=== PATIENT | male | born 1955 ===

== ENCOUNTER 2018-07-23 13:21 | Emergency (ER) | payer OTHER ==
[2018-07-23 15:14] LABS: BASO % 0.2 % (0.0-2.0); EOS % 0.2 % (0.0-4.0); HEMOGLOBIN 10.4 g/dL (12.0-18.0); LYMPH # 1.3 K/uL (1.0-4.3); LYMPH % 11.9 % (20.0-40.0); MEAN CELL VOLUME 77.9 fl (80.0-94.0); MEAN CORPUSCULAR HEMOGLOBIN 25.6 pg (27.0-31.0); MEAN CORPUSCULAR HGB CONC 32.8 g/dL (33.0-37.0); MEAN PLATELET VOLUME 7.6 fl (7.2-11.7); MONO # 0.2 K/uL (0.0-0.8); MONO % 2.1 % (0.0-10.0); NEUT # 9.3 K/uL (1.8-7.0); NEUT % 85.6 % (50.0-75.0); RBC 4.05 Mil/uL (4.40-5.90); WHITE BLOOD COUNT 10.9 K/uL (4.8-10.8)
[2018-07-23 15:19] LABS: ALB/GLOB RATIO 0.6 (1.0-2.1); ALBUMIN 2.2 g/dL (3.5-5.0); ALT/SGPT 16 U/L (21-72); AST/SGOT 26 U/L (17-59); BLOOD UREA NITROGEN 37 mg/dl (9-20); CALCIUM 7.5 mg/dL (8.4-10.2); GFR NON-AFRICAN AMERICAN > 60; LIPASE 16 U/L (23-300)
--- NOTE | 2018-07-23 15:26 | RAD ---
Date of service: 07/23/2018 HISTORY: abd pain COMPARISON: No prior. FINDINGS: LUNGS: No active pulmonary disease. PLEURA: No significant pleural effusion identified, no pneumothorax apparent. CARDIOVASCULAR: Normal. OSSEOUS STRUCTURES: No significant abnormalities. VISUALIZED UPPER ABDOMEN: Gas-filled large-bowel loops and moderate retained fecal material the left hemicolon as imaged. OTHER FINDINGS: None. IMPRESSION: No acute cardiopulmonary disease appreciated.
--- NOTE | 2018-07-23 15:40 | RAD ---
Date of service: 07/23/2018 PROCEDURE: Radiographs of the left tibia and fibula. HISTORY: leg wound COMPARISON: None available. TECHNIQUE: Frontal and lateral views obtained. FINDINGS: BONES: There is no acute fracture or dislocation however there is diffuse osteopenia suggesting osteoporosis. Further, soft tissue loss is seen at the mid to distal leg with abnormal periosteal changes suspicious for potential osteomyelitis though posttraumatic etiology is possible. Clinically correlate further. It may be difficult to separate osteomyelitis and any other process even with nuclear or MRI imaging. JOINT SPACES: Unremarkable. OTHER FINDINGS: None. IMPRESSION: No acute fracture or dislocation however gross abnormal periosteal reaction of the distal tibia and fibula which may reflect osteomyelitis. It may be impossible to does prove osteomyelitis despite MR nuclear imaging and added can be performed for further characterization although if it nuclear imaging is requested then left leg three-phase nuclear technique is required.
[2018-07-23] MEDS ORDERED: Sodium Chloride 0.9% 1,000 ML IV STA (15:42)
[2018-07-23] MEDS ORDERED: Iohexol 240 (50 ml) PO STA (16:07)
[2018-07-23] MEDS ORDERED: Iohexol 240 (50 ml) ONE (16:08)
[2018-07-23 16:09] LABS: VENOUS BLOOD GAS BASE EXCESS 2.2 mmol/L (0.0-2.0); VENOUS BLOOD GAS PCO2 49 mmHg (40-60); VENOUS BLOOD GAS PO2 20 mm/Hg (30-55); VENOUS BLOOD PH 7.37 (7.32-7.43)
--- NOTE | 2018-07-23 16:13 | ED PDOC ---
Addendum entered and electronically signed by Estella Collazo PA 07/26/18 10:24: Addendum Addendum: 07/26/18 10:23 wound cx noted with group G Strep sensitive to cipro and milldy sensitive to bactrim. patient is not on any antibiotics. Patient is homeless and no address or phone number listed. Was seen by podiatry in ED at time of visit. Original Note: HPI: Abdomen Time Seen by Provider: 07/23/18 13:36 Chief Complaint (Nursing): Abdominal Pain Chief Complaint (Provider): Abdominal Pain History Per: Patient, House [employer] ([id number]) History/Exam Limitations: no limitations Onset/Duration Of Symptoms: Days (x2) Current Symptoms Are (Timing): Still Present Additional Complaint(s): 62 year old male presents to ED with a complaint of upper and left-sided abdominal pain since yesterday. Patient denies any nausea, vomiting, diarrhea, constipation, fever, chills, chest pain, or shortness of breath. Of note, patient admits to Hx of heroin abuse with last use over a year ago. PMD: none provided Past Medical History Reviewed: Historical Data, Nursing Documentation, Vital Signs Vital Signs: Last Vital Signs Temp 97.8 F 07/23/18 13:26 Pulse 98 H 07/24/18 11:07 Resp 20 07/23/18 13:26 BP 144/84 07/23/18 13:26 Pulse Ox 100 07/24/18 11:07 - Medical History PMH: Denies: CAD, CVA, Diabetes, HIV - Surgical History Surgical History: Cholecystectomy - Family History Family History: States: Unknown Family Hx - Social History Drugs: Denies, Other (hx of heroin abuse - last use was 1 year ago) - Home Medications Home Medications: Ambulatory Orders Medication Instructions Recorded Dicyclomine [Dicyclomine HCl] 10 mg PO Q8 #10 cap 07/24/18 - Allergies Allergies/Adverse Reactions: Allergies Allergy/AdvReac Type Severity Reaction Status Date / Time No Known Allergies Allergy Verified 07/23/18 13:26 Review of Systems ROS Statement: Except As Marked, All Systems Reviewed And Found Negative Constitutional: Negative for: Fever, Chills Cardiovascular: Negative for: Chest Pain Respiratory: Negative for: Shortness of Breath Gastrointestinal: Positive for: Abdominal Pain (upper left). Negative for: Nausea, Vomiting, Diarrhea, Constipation Physical Exam - Reviewed Nursing Documentation Reviewed: Yes Vital Signs Reviewed: Yes - Physical Exam Appears: Positive for: Well, Non-toxic, No Acute Distress (cachectic ) Head Exam: Positive for: ATRAUMATIC, NORMAL INSPECTION, NORMOCEPHALIC Skin: Positive for: Normal Color Eye Exam: Positive for: Normal appearance ENT: Positive for: Normal ENT Inspection Neck: Positive for: Normal Cardiovascular/Chest: Positive for: Regular Rate, Rhythm Respiratory: Positive for: Normal Breath Sounds. Negative for: Respiratory Distress Gastrointestinal/Abdominal: Positive for: Soft, Tenderness (epigastric minimally), Other (large vertical old scar noted) Back: Positive for: Normal Inspection. Negative for: L CVA Tenderness, R CVA Tenderness Extremity: Positive for: Normal ROM (upper/lower), Other (large circumferential open wound with minimal drainage to left distal leg - patient reports he's had it for "several year" with FUP at [facility]) Neurologic/Psych: Positive for: Alert (x3), Oriented. Negative for: Motor/Sensory Deficits - Laboratory Results Result Diagrams: 07/23/18 15:00 07/23/18 15:00 - ECG ECG: Positive for: Interpreted By Me ECG Rhythm: Positive for: Sinus Rhythm. Negative for: ST/T Changes Rate: 98 O2 Sat by Pulse Oximetry: 100 (RA) Pulse Ox Interpretation: Normal - Progress ED Course And Treament: Pt. evaluated by [facility] pod[facility]ry resident, who spoke with Dr. Hanks and states pt. does not require any acute treatment as wound seems to be cared for routinely and has granulation tissue. Dressing was changed in ED by podiatry. No Abx needed at this time. IV line infiltrated. Calcium PO ordered. IV contrast cancelled and pt. will receive only PO contrast. Medical Decision Making Medical Decision Making: Time: 1415 Initial Plan: * Labs * CT ABD/pelvis with PO and IV contrast * EKG * NPO diet * CXR * IV fluids * Omnipaque 240 50ml PO * XR tibia/fibula (left) Time: 1523 --CXR FINDINGS: LUNGS: No active pulmonary disease. PLEURA: No significant pleural effusion identified, no pneumothorax apparent. CARDIOVASCULAR: Normal. OSSEOUS STRUCTURES: No significant abnormalities. VISUALIZED UPPER ABDOMEN: Gas-filled large-bowel loops and moderate retained fecal material the left hemicolon as imaged. OTHER FINDINGS: None. IMPRESSION: No acute cardiopulmonary disease appreciated. Time: 1539 --XR left tibia/fibula FINDINGS: BONES: There is no acute fracture or dislocation however there is diffuse osteopenia suggesting osteoporosis. Further, soft tissue loss is seen at the mid to distal leg with abnormal periosteal changes suspicious for potential osteomyelitis t ember posttraumatic etiology is possible. Clinically correlate further. It may be difficult to separate osteomyelitis and any other process even with nuclear or MRI imaging. JOINT SPACES: Unremarkable. OTHER FINDINGS: None. IMPRESSION: No acute fracture or dislocation however gross abnormal periosteal reaction of the distal tibia and fibula which may reflect osteomyelitis. It may be impossible to does prove osteomyelitis despite MR nuclear imaging and added can be performed for further characterization although if it nuclear imaging is requested then left leg three-phase nuclear technique is required. Scribe Attestation: Documented by Valery Johnston, acting as a scribe for BRIELLE Martines. Provider Scribe Attestation: All medical record entries made by the Scribe were at my direction and personally dictated by me. I have reviewed the chart and agree that the record accurately reflects my personal performance of the history, physical exam, medical decision making, and the department course for this patient. I have also personally directed, reviewed, and agree with the discharge instructions and disposition. Disposition - Clinical Impression Clinical Impression: Abdominal pain, Hypocalcemia, Ileus - Patient ED Disposition Is Patient to be Admitted: Transfer of Care (Signed out to Tesha MONK pending CT report) - Disposition Referrals: [facility] [Outside] Jordy Ferrari MD [Staff Provider] - Disposition: Routine/Home Disposition Time: 20:00 Condition: FAIR Prescriptions: Dicyclomine [Dicyclomine HCl] 10 mg PO Q8 #10 cap Instructions: Colic Forms: [facility] (Marshallese) Print Language: TURKMEN
[2018-07-23 16:28] LABS: URINE BILIRUBIN NEGATIVE (NEGATIVE); URINE BLOOD NEGATIVE (NEGATIVE); URINE CLARITY SLIGHTY-CLOUDY (Clear); URINE COLOR YELLOW (YELLOW); URINE GLUCOSE (UA) NEG (Normal); URINE LEUKOCYTE ESTERASE NEG Leu/uL (Negative); URINE PROTEIN 30 mg/dL (NEGATIVE); URINE UROBILINOGEN 0.2-1.0 mg/dL (0.2-1.0)
[2018-07-23] MEDS ORDERED: Hydrogen Peroxide 3% Soln (480ml) TP ONE (17:02)
[2018-07-23] MEDS ORDERED: Povidone Iodine Topical 10% Sol ONE (17:09)
--- NOTE | 2018-07-23 17:21 | CP.PCM.CON ---
History of Present Illness - History of Present Illness History of Present Illness: 62 yo homeless male patient seen and evaluated in the ED for bilateral lower extremity wounds. Patient is a poor historian. States he has had the wounds for a long time and that he gets them treated at [facility]. States that he is in pain with his wounds. Dressings look clean and dry indicating he has had them changed recently. Denies F/C and presents today for main complaint of abdominal pain. Maggots were present in all interdigital spaces on his left foot. PMHx Denies PSHx Denies All NKDA Past Patient History - Past Social History Drugs: Denies, Other (hx of heroin abuse - last use was 1 year ago) - HEMATOLOGICAL/ONCOLOGICAL Hx Human Immunodeficiency Virus (HIV): No - PSYCHIATRIC Hx Substance Use: Yes - SURGICAL HISTORY Hx Cholecystectomy: Yes - ANESTHESIA Hx Anesthesia: Yes Meds Home Medications: Home Medication List Medication Instructions Recorded Confirmed Type Dicyclomine [Dicyclomine HCl] 10 mg PO Q8 #10 cap 07/24/18 Rx Allergies/Adverse Reactions: Allergies Allergy/AdvReac Type Severity Reaction Status Date / Time No Known Allergies Allergy Verified 07/23/18 13:26 Physical Exam - Constitutional Appears: Well, Non-toxic, No Acute Distress - Extremities Exam Additional comments: Vasc: DP and PT pulses are 1/4 b/l, temp gradient is warm to warm from proximal to distal, cap refill <3 seconds to all digits Derm: circumferential wounds present on bilateral lower legs, bases are granular with no discharge, minimal periwound erythema b/l, interdigital maceration on left foot and maggots present between toes; no clinical signs of infection, stable granular skin between digits Ortho: no gross deformities present, pain on palpation of wounds b/l Neuro: protective and gross sensation diminished - Neurological Exam Neurological exam: Alert - Psychiatric Exam Psychiatric exam: Normal Affect, Normal Mood Results - Vital Signs Recent Vital Signs: Last Vital Signs Temp 97.8 F 07/23/18 13:26 Pulse 103 H 07/23/18 13:26 Resp 20 07/23/18 13:26 BP 144/84 07/23/18 13:26 Pulse Ox 100 07/23/18 16:23 - Labs Result Diagrams: 07/23/18 15:00 07/23/18 15:00 Labs: Laboratory Results - last 24 hr 07/23/18 07/23/18 07/23/18 15:00 15:00 16:01 WBC 10.9 H RBC 4.05 L Hgb 10.4 L Hct 31.6 L MCV 77.9 L MCH 25.6 L MCHC 32.8 L RDW 25.0 H Plt Count 418 H MPV 7.6 Neut % (Auto) 85.6 H Lymph % (Auto) 11.9 L [place] % (Auto) 2.1 Eos % (Auto) 0.2 Baso % (Auto) 0.2 Neut # (Auto) 9.3 H Lymph # (Auto) 1.3 [place] # (Auto) 0.2 Eos # (Auto) 0.0 Baso # (Auto) 0.0 pO2 20 L VBG pH 7.37 VBG pCO2 49 VBG HCO3 24.8 VBG Total CO2 29.8 H VBG O2 Sat (Calc) 30.5 L VBG Base Excess 2.2 H VBG Potassium 3.9 Glucose 74 L Lactate 2.1 FiO2 21.0 Blood Gas Comments Lact=2.1 Crit Value Called To yanique Johnson Crit Value Called By 22 Crit Value Read Back Y Blood Gas Notified Time 1608 Sodium 134 133.0 Potassium 3.8 Chloride 103 103.0 Carbon Dioxide 24 Anion Gap 11 BUN 37 H Creatinine 1.1 Est GFR ( Amer) > 60 Est GFR (Non-Af Amer) > 60 Random Glucose 81 Calcium 7.5 L Total Bilirubin 0.1 L AST 26 ALT 16 L Alkaline Phosphatase 210 H Troponin I < 0.0120 Total Protein 5.7 L Albumin 2.2 L Globulin 3.5 Albumin/Globulin Ratio 0.6 L Lipase 16 L Venous Blood Potassium 3.9 Urine Color Urine Clarity Urine pH Ur Specific [place] Urine Protein Urine Glucose (UA) Urine Ketones Urine Blood Urine Nitrate Urine Bilirubin Urine Urobilinogen Ur Leukocyte Esterase Urine RBC (Auto) Urine Microscopic WBC Alcohol, Quantitative < 10 07/23/18 16:21 WBC RBC Hgb Hct MCV MCH MCHC RDW Plt Count MPV Neut % (Auto) Lymph % (Auto) [place] % (Auto) Eos % (Auto) Baso % (Auto) Neut # (Auto) Lymph # (Auto) [place] # (Auto) Eos # (Auto) Baso # (Auto) pO2 VBG pH VBG pCO2 VBG HCO3 VBG Total CO2 VBG O2 Sat (Calc) VBG Base Excess VBG Potassium Glucose Lactate FiO2 Blood Gas Comments Crit Value Called To Crit Value Called By Crit Value Read Back Blood Gas Notified Time Sodium Potassium Chloride Carbon Dioxide Anion Gap BUN Creatinine Est GFR ( Amer) Est GFR (Non-Af Amer) Random Glucose Calcium Total Bilirubin AST ALT Alkaline Phosphatase Troponin I Total Protein Albumin Globulin Albumin/Globulin Ratio Lipase Venous Blood Potassium Urine Color Yellow Urine Clarity Slighty-cloudy Urine pH 5.0 Ur Specific [place] 1.020 Urine Protein 30 Urine Glucose (UA) Neg Urine Ketones Negative Urine Blood Negative Urine Nitrate Negative Urine Bilirubin Negative Urine Urobilinogen 0.2-1.0 Ur Leukocyte Esterase Neg Urine RBC (Auto) 6 H Urine Microscopic WBC 7 H Alcohol, Quantitative Assessment & Plan - Assessment and Plan (Free Text) Assessment: 62 yo seen and evaluated in ED for 1) b/l circumferential leg wounds and 2) left foot interdigital maceration with maggots Plan: Patient seen and evaluated Discussed in detail with Dr. Hanks Charts and labs reviewed: afebrile with mildly elevated white count Wounds were cleaned with saline and dressed with xeroform and DSD Interdigital maceration was sanitized and disinfected with alcohol to remove maggots and dressed with betadine to all interspaces and DSD Patient instructed to continue to follow up with who is treating his wounds in [facility] Stable for discharge from podiatry standpoint - please reconsult if further problems occur Thank you for the consult - Date & Time Date: 07/23/18 Time: 17:21
[2018-07-23 17:41] LABS: BARBITURATES, UR NEGATIVE (NEGATIVE); BENZODIAZEPINES, UR NEGATIVE (NEGATIVE); OPIATES, UR POSITIVE (NEGATIVE); PHENCYCLIDINE, UR NEGATIVE (NEGATIVE)
[2018-07-23] MEDS ORDERED: Iohexol 300 100 ML IJ ONE (19:10)
[2018-07-23] MEDS ORDERED: Sodium Chloride 0.9% 50 ML IV ONE (19:10)
--- NOTE | 2018-07-23 20:30 | ED PDOC ---
- Laboratory Results Result Diagrams: 07/23/18 15:00 07/23/18 15:00 - ECG O2 Sat by Pulse Oximetry: 100 (RA) Pulse Ox Interpretation: Normal <Soumya Parkinson - Last Filed: 07/24/18 06:20> - Laboratory Results Result Diagrams: 07/23/18 15:00 07/23/18 15:00 <Javier Gonzalez - Last Filed: 07/24/18 06:41> Medical Decision Making <Soumya Parkinson - Last Filed: 07/24/18 06:20> <Javier Gonzalez - Last Filed: 07/24/18 06:41> Medical Decision Making: Case endorsed to telegraphic typewriter operator chief, Tesha MONK, at 2000 due to shift change. Pertinent details reviewed. Patent pending CT results, re-evaluation, and further disposition. Labs and XRs reviewed. Repeat HR: 98. 2145 EXAM: CT Abdomen and Pelvis Without Intravenous Contrast CLINICAL HISTORY: 62 years old, male; Pain; Abdominal pain; Epigastric; Additional info: Epigastric abd pain TECHNIQUE: Axial computed tomography images of the abdomen and pelvis without intravenous contrast. All CT scans at this facility use at least one of these dose optimization techniques: automated exposure control; mA and/or kV adjustment per patient size (includes targeted exams where dose is matched to clinical indication); or iterative reconstruction. Coronal and sagittal reformatted images were created and reviewed. COMPARISON: No relevant prior studies available. FINDINGS: Lung bases: Bilateral lung obstructing renal calculi. Largest stone right kidney in the upper pole 4 mm. Largest stone left kidney in the lower pole 0.8 cm. ABDOMEN: Liver: No mass. Gallbladder and bile ducts: Intact. No calcified stones. No ductal dilation. Pancreas: No ductal dilation. Spleen: No splenomegaly. Adrenals: No mass. Kidneys and ureters: See above. Stomach and bowel: Moderate large retained feces in the ascending and descending colon. Gaseous transverse colon measuring up to 5 cm. Gaseous small bowel loops throughout the abdomen measuring up to 2.5 cm with scattered air fluid levels. PELVIS: Appendix: No findings to suggest acute appendicitis. Bladder: No stones. Reproductive: Unremarkable as visualized. ABDOMEN and PELVIS: Intraperitoneal space: No free air. No significant fluid collection. Bones/joints: Osteopenia. Superior endplate Schmorl node depression depressions at T11 and T12. Inferior endplate Schmorl node depression at L2. Posterior vertebral line intact. No spinal canal stenosis. No acute fracture. No dislocation. Soft tissues: Cachectic patient. Vasculature: No aortic aneurysm. Lymph nodes: No enlarged lymph nodes. IMPRESSION: 1. Moderate large retained feces in the ascending and descending colon. Gaseous transverse colon measuring up to 5 cm. 2. Gaseous small bowel loops throughout the abdomen measuring up to 2.5 cm with scattered air fluid levels. Ileus versus partial bowel obstruction. Followup is needed. 3. Cachectic patient. Thank you for allowing us to participate in the care of your patient. Dictated and Authenticated by: Danny Lopez MD 07/23/2018 8:32 PM Eastern Time ( [place] & [place]) Consult placed to surgical technology instructor. [address] Low, who is agreeable to ED evaluation. Recommends 15mg IVP Toradol. 0010 Surgery at bedside. See consult note. 0040 Per surgical evaluation, patient to be held in obsevation in ED for IVF and serial evaluations. Patient to be NPO and go for KUB at 0700. 0300 Patient sleeping comfortably on re-evaluation. 0700 Case endorsed to ED MD Leigh pending KUB and further disposition per surgery. ( Soumya Parkinson) 0700 Pending KUB, will be endorsed to Dr. Leigh for final re-deanna after KUB. (Javier Gonzalez) Disposition - POA Present On Arrival: None - Disposition Disposition: Transfer of Care (Case endorsed to ED MD Leigh pending KUB and further disposition per surgery.) Disposition Time: 07:00 <Soumya Parkinson - Last Filed: 07/24/18 06:20> <Javier Gonzalez - Last Filed: 07/24/18 06:41> - Clinical Impression Clinical Impression: Abdominal pain, Hypocalcemia - Disposition Condition: FAIR - Lab Results Lab Results: 07/23/18 07/23/18 07/23/18 16:21 16:01 15:00 WBC 10.9 H RBC 4.05 L Hgb 10.4 L Hct 31.6 L MCV 77.9 L MCH 25.6 L MCHC 32.8 L RDW 25.0 H Plt Count 418 H MPV 7.6 Neut % (Auto) 85.6 H Lymph % (Auto) 11.9 L [place] % (Auto) 2.1 Eos % (Auto) 0.2 Baso % (Auto) 0.2 Neut # (Auto) 9.3 H Lymph # (Auto) 1.3 [place] # (Auto) 0.2 Eos # (Auto) 0.0 Baso # (Auto) 0.0 pO2 20 L VBG pH 7.37 VBG pCO2 49 VBG HCO3 24.8 VBG Total CO2 29.8 H VBG O2 Sat (Calc) 30.5 L VBG Base Excess 2.2 H VBG Potassium 3.9 Glucose 74 L Lactate 2.1 FiO2 21.0 Blood Gas Comments Lact=2.1 Crit Value Called To yanique Johnson Crit Value Called By 22 Crit Value Read Back Y Blood Gas Notified Time 1608 Sodium 133.0 Potassium Chloride 103.0 Carbon Dioxide Anion Gap BUN Creatinine Est GFR ( Amer) Est GFR (Non-Af Amer) Random Glucose Calcium Total Bilirubin AST ALT Alkaline Phosphatase Troponin I Total Protein Albumin Globulin Albumin/Globulin Ratio Lipase Venous Blood Potassium 3.9 Urine Color Yellow Urine Clarity Slighty-cloudy Urine pH 5.0 Ur Specific [place] 1.020 Urine Protein 30 Urine Glucose (UA) Neg Urine Ketones Negative Urine Blood Negative Urine Nitrate Negative Urine Bilirubin Negative Urine Urobilinogen 0.2-1.0 Ur Leukocyte Esterase Neg Urine RBC (Auto) 6 H Urine Microscopic WBC 7 H Urine Opiates Screen Urine Methadone Screen Ur Barbiturates Screen Ur Phencyclidine Scrn Ur Amphetamines Screen U Benzodiazepines Scrn U Oth Cocaine Metabols U Cannabinoids Screen Alcohol, Quantitative 07/23/18 07/23/18 15:00 14:30 WBC RBC Hgb Hct MCV MCH MCHC RDW Plt Count MPV Neut % (Auto) Lymph % (Auto) [place] % (Auto) Eos % (Auto) Baso % (Auto) Neut # (Auto) Lymph # (Auto) [place] # (Auto) Eos # (Auto) Baso # (Auto) pO2 VBG pH VBG pCO2 VBG HCO3 VBG Total CO2 VBG O2 Sat (Calc) VBG Base Excess VBG Potassium Glucose Lactate FiO2 Blood Gas Comments Crit Value Called To Crit Value Called By Crit Value Read Back Blood Gas Notified Time Sodium 134 Potassium 3.8 Chloride 103 Carbon Dioxide 24 Anion Gap 11 BUN 37 H Creatinine 1.1 Est GFR ( Amer) > 60 Est GFR (Non-Af Amer) > 60 Random Glucose 81 Calcium 7.5 L Total Bilirubin 0.1 L AST 26 ALT 16 L Alkaline Phosphatase 210 H Troponin I < 0.0120 Total Protein 5.7 L Albumin 2.2 L Globulin 3.5 Albumin/Globulin Ratio 0.6 L Lipase 16 L Venous Blood Potassium Urine Color Urine Clarity Urine pH Ur Specific [place] Urine Protein Urine Glucose (UA) Urine Ketones Urine Blood Urine Nitrate Urine Bilirubin Urine Urobilinogen Ur Leukocyte Esterase Urine RBC (Auto) Urine Microscopic WBC Urine Opiates Screen Positive H Urine Methadone Screen Positive H Ur Barbiturates Screen Negative Ur Phencyclidine Scrn Negative Ur Amphetamines Screen Negative U Benzodiazepines Scrn Negative U Oth Cocaine Metabols Negative U Cannabinoids Screen Negative Alcohol, Quantitative < 10
[2018-07-24] MEDS ORDERED: Lactated Ringer's 1,000 ML IV SCH (00:30)
--- NOTE | 2018-07-24 00:33 | CP.PCM.CON ---
<Rony Low - Last Filed: 07/24/18 00:29> History of Present Illness - History of Present Illness History of Present Illness: General Surgery Consult Re: Ileus vs pSBO HPI: 62M presents to ED with a complaint of epigastric and left-sided abdominal pain since yesterday. Says he has not had this before. Denies nausea, vomiting, diarrhea, constipation, fever, chills, chest pain, or shortness of breath. Last BM was yesterday and had trace blood in it which he says is normal for him. Says his last colonoscopy was the last time he was here, however, there is no record of this. He follows up for wound care at [facility]. PMH: Denies PSH: Cholecystectomy FH: noncontributory SH: Current smoker, daily EtOH, Hx of heroin use, now on methadone. All: NKDA Meds: Methadone Review of Systems - Review of Systems All systems: reviewed and no additional remarkable complaints except (as per HPI ) Past Patient History - Past Social History Drugs: Denies, Other (hx of heroin abuse - last use was 1 year ago) - HEMATOLOGICAL/ONCOLOGICAL Hx Human Immunodeficiency Virus (HIV): No - PSYCHIATRIC Hx Substance Use: Yes - SURGICAL HISTORY Hx Cholecystectomy: Yes - ANESTHESIA Hx Anesthesia: Yes Meds Allergies/Adverse Reactions: Allergies Allergy/AdvReac Type Severity Reaction Status Date / Time No Known Allergies Allergy Verified 07/23/18 13:26 Physical Exam - Constitutional Appears: Non-toxic, No Acute Distress, Cachectic - Head Exam Head Exam: ATRAUMATIC, NORMOCEPHALIC - Eye Exam Eye Exam: EOMI. absent: Scleral icterus - ENT Exam ENT Exam: Mucous Membranes Moist Additional comments: poor dentition - Neck Exam Neck exam: Positive for: Full Rom. Negative for: Tenderness - Respiratory Exam Respiratory Exam: NORMAL BREATHING PATTERN. absent: Respiratory Distress - Cardiovascular Exam Cardiovascular Exam: RRR, +S1, +S2 - GI/Abdominal Exam GI & Abdominal Exam: Soft, Tenderness (mild in epigastrum, moderate over L quadrants). absent: Distended, Firm, Guarding, Rebound, Rigid Additional comments: large well healed midline incision - Rectal Exam Rectal Exam: absent: Black Stool, Bloody Stool, Fecal Impaction - Extremities Exam Extremities exam: Negative for: calf tenderness, pedal edema Additional comments: UE b/l with discoloration and mild edema LLE with dressing in place - Back Exam Back exam: absent: CVA tenderness (L), CVA tenderness (R) - Neurological Exam Neurological exam: Alert, Oriented x3 - Skin Skin Exam: Dry, Warm Results - Vital Signs Recent Vital Signs: Last Vital Signs Temp 97.8 F 07/23/18 13:26 Pulse 98 H 07/23/18 20:40 Resp 20 07/23/18 13:26 BP 144/84 07/23/18 13:26 Pulse Ox 100 07/24/18 00:11 - Labs Result Diagrams: 07/23/18 15:00 07/23/18 15:00 Labs: Laboratory Results - last 24 hr 07/23/18 07/23/18 07/23/18 14:30 15:00 15:00 WBC 10.9 H RBC 4.05 L Hgb 10.4 L Hct 31.6 L MCV 77.9 L MCH 25.6 L MCHC 32.8 L RDW 25.0 H Plt Count 418 H MPV 7.6 Neut % (Auto) 85.6 H Lymph % (Auto) 11.9 L [place] % (Auto) 2.1 Eos % (Auto) 0.2 Baso % (Auto) 0.2 Neut # (Auto) 9.3 H Lymph # (Auto) 1.3 [place] # (Auto) 0.2 Eos # (Auto) 0.0 Baso # (Auto) 0.0 pO2 VBG pH VBG pCO2 VBG HCO3 VBG Total CO2 VBG O2 Sat (Calc) VBG Base Excess VBG Potassium Glucose Lactate FiO2 Blood Gas Comments Crit Value Called To Crit Value Called By Crit Value Read Back Blood Gas Notified Time Sodium 134 Potassium 3.8 Chloride 103 Carbon Dioxide 24 Anion Gap 11 BUN 37 H Creatinine 1.1 Est GFR ( Amer) > 60 Est GFR (Non-Af Amer) > 60 Random Glucose 81 Calcium 7.5 L Total Bilirubin 0.1 L AST 26 ALT 16 L Alkaline Phosphatase 210 H Troponin I < 0.0120 Total Protein 5.7 L Albumin 2.2 L Globulin 3.5 Albumin/Globulin Ratio 0.6 L Lipase 16 L Venous Blood Potassium Urine Color Urine Clarity Urine pH Ur Specific [place] Urine Protein Urine Glucose (UA) Urine Ketones Urine Blood Urine Nitrate Urine Bilirubin Urine Urobilinogen Ur Leukocyte Esterase Urine RBC (Auto) Urine Microscopic WBC Urine Opiates Screen Positive H Urine Methadone Screen Positive H Ur Barbiturates Screen Negative Ur Phencyclidine Scrn Negative Ur Amphetamines Screen Negative U Benzodiazepines Scrn Negative U Oth Cocaine Metabols Negative U Cannabinoids Screen Negative Alcohol, Quantitative < 10 07/23/18 07/23/18 16:01 16:21 WBC RBC Hgb Hct MCV MCH MCHC RDW Plt Count MPV Neut % (Auto) Lymph % (Auto) [place] % (Auto) Eos % (Auto) Baso % (Auto) Neut # (Auto) Lymph # (Auto) [place] # (Auto) Eos # (Auto) Baso # (Auto) pO2 20 L VBG pH 7.37 VBG pCO2 49 VBG HCO3 24.8 VBG Total CO2 29.8 H VBG O2 Sat (Calc) 30.5 L VBG Base Excess 2.2 H VBG Potassium 3.9 Glucose 74 L Lactate 2.1 FiO2 21.0 Blood Gas Comments Lact=2.1 Crit Value Called To yanique Johnson Crit Value Called By 22 Crit Value Read Back Y Blood Gas Notified Time 1608 Sodium 133.0 Potassium Chloride 103.0 Carbon Dioxide Anion Gap BUN Creatinine Est GFR ( Amer) Est GFR (Non-Af Amer) Random Glucose Calcium Total Bilirubin AST ALT Alkaline Phosphatase Troponin I Total Protein Albumin Globulin Albumin/Globulin Ratio Lipase Venous Blood Potassium 3.9 Urine Color Yellow Urine Clarity Slighty-cloudy Urine pH 5.0 Ur Specific [place] 1.020 Urine Protein 30 Urine Glucose (UA) Neg Urine Ketones Negative Urine Blood Negative Urine Nitrate Negative Urine Bilirubin Negative Urine Urobilinogen 0.2-1.0 Ur Leukocyte Esterase Neg Urine RBC (Auto) 6 H Urine Microscopic WBC 7 H Urine Opiates Screen Urine Methadone Screen Ur Barbiturates Screen Ur Phencyclidine Scrn Ur Amphetamines Screen U Benzodiazepines Scrn U Oth Cocaine Metabols U Cannabinoids Screen Alcohol, Quantitative - Imaging and Cardiology CT scan - abdomen Status: Image reviewed by me, Report reviewed by me Assessment & Plan - Assessment and Plan (Free Text) Assessment: 62M with pSBO likely due to methadone Plan: NPO IVF Zofran Analgesia PRN AM labs AM abd x ray Monitor for BMs D/W Dr. Vonda Low PGY4 <Jordy Ferrari - Last Filed: 07/24/18 14:01> History of Present Illness - History of Present Illness History of Present Illness: Patient was seen and examined at the bedside. Agree with resident's note above. Passing flatus and having bowel movements. PO contrast in the transverse colon on today's abdominal X-ray. Physical Exam - GI/Abdominal Exam Additional comments: soft, NT, ND, BS+, no rebound, no guarding, well healed midline incision Results - Vital Signs Recent Vital Signs: Last Vital Signs Temp 98.0 F 07/24/18 13:24 Pulse 71 07/24/18 13:24 Resp 18 07/24/18 13:24 BP 109/69 07/24/18 13:24 Pulse Ox 98 07/24/18 13:24 - Labs Result Diagrams: 07/23/18 15:00 07/23/18 15:00 Labs: Laboratory Results - last 24 hr 07/23/18 07/23/18 07/23/18 14:30 15:00 15:00 WBC 10.9 H RBC 4.05 L Hgb 10.4 L Hct 31.6 L MCV 77.9 L MCH 25.6 L MCHC 32.8 L RDW 25.0 H Plt Count 418 H MPV 7.6 Neut % (Auto) 85.6 H Lymph % (Auto) 11.9 L [place] % (Auto) 2.1 Eos % (Auto) 0.2 Baso % (Auto) 0.2 Neut # (Auto) 9.3 H Lymph # (Auto) 1.3 [place] # (Auto) 0.2 Eos # (Auto) 0.0 Baso # (Auto) 0.0 pO2 VBG pH VBG pCO2 VBG HCO3 VBG Total CO2 VBG O2 Sat (Calc) VBG Base Excess VBG Potassium Glucose Lactate FiO2 Blood Gas Comments Crit Value Called To Crit Value Called By Crit Value Read Back Blood Gas Notified Time Sodium 134 Potassium 3.8 Chloride 103 Carbon Dioxide 24 Anion Gap 11 BUN 37 H Creatinine 1.1 Est GFR ( Amer) > 60 Est GFR (Non-Af Amer) > 60 Random Glucose 81 Calcium 7.5 L Total Bilirubin 0.1 L AST 26 ALT 16 L Alkaline Phosphatase 210 H Troponin I < 0.0120 Total Protein 5.7 L Albumin 2.2 L Globulin 3.5 Albumin/Globulin Ratio 0.6 L Lipase 16 L Venous Blood Potassium Urine Color Urine Clarity Urine pH Ur Specific [place] Urine Protein Urine Glucose (UA) Urine Ketones Urine Blood Urine Nitrate Urine Bilirubin Urine Urobilinogen Ur Leukocyte Esterase Urine RBC (Auto) Urine Microscopic WBC Urine Opiates Screen Positive H Urine Methadone Screen Positive H Ur Barbiturates Screen Negative Ur Phencyclidine Scrn Negative Ur Amphetamines Screen Negative U Benzodiazepines Scrn Negative U Oth Cocaine Metabols Negative U Cannabinoids Screen Negative Alcohol, Quantitative < 10 07/23/18 07/23/18 16:01 16:21 WBC RBC Hgb Hct MCV MCH MCHC RDW Plt Count MPV Neut % (Auto) Lymph % (Auto) [place] % (Auto) Eos % (Auto) Baso % (Auto) Neut # (Auto) Lymph # (Auto) [place] # (Auto) Eos # (Auto) Baso # (Auto) pO2 20 L VBG pH 7.37 VBG pCO2 49 VBG HCO3 24.8 VBG Total CO2 29.8 H VBG O2 Sat (Calc) 30.5 L VBG Base Excess 2.2 H VBG Potassium 3.9 Glucose 74 L Lactate 2.1 FiO2 21.0 Blood Gas Comments Lact=2.1 Crit Value Called To yanique Johnson Crit Value Called By 22 Crit Value Read Back Y Blood Gas Notified Time 1608 Sodium 133.0 Potassium Chloride 103.0 Carbon Dioxide Anion Gap BUN Creatinine Est GFR ( Amer) Est GFR (Non-Af Amer) Random Glucose Calcium Total Bilirubin AST ALT Alkaline Phosphatase Troponin I Total Protein Albumin Globulin Albumin/Globulin Ratio Lipase Venous Blood Potassium 3.9 Urine Color Yellow Urine Clarity Slighty-cloudy Urine pH 5.0 Ur Specific [place] 1.020 Urine Protein 30 Urine Glucose (UA) Neg Urine Ketones Negative Urine Blood Negative Urine Nitrate Negative Urine Bilirubin Negative Urine Urobilinogen 0.2-1.0 Ur Leukocyte Esterase Neg Urine RBC (Auto) 6 H Urine Microscopic WBC 7 H Urine Opiates Screen Urine Methadone Screen Ur Barbiturates Screen Ur Phencyclidine Scrn Ur Amphetamines Screen U Benzodiazepines Scrn U Oth Cocaine Metabols U Cannabinoids Screen Alcohol, Quantitative - Imaging and Cardiology Abdominal x-ray Status: Image reviewed by me, Report reviewed by me Assessment & Plan - Assessment and Plan (Free Text) Plan: - Start diet - No evidence of bowel obstruction - No general surgery intervention at present time - Patient is clear for discharge from general surgery stand point
--- NOTE | 2018-07-24 09:34 | CT ---
Date of service: 07/23/2018 PROCEDURE: CT Abdomen and Pelvis with Oral contrast. HISTORY: epigastric abd pain COMPARISON: None. TECHNIQUE: Contiguous axial images of the abdomen and pelvis. Oral contrast was administered. No IV contrast given. Coronal and Sagittal reformats generated. Radiation dose: Total exam DLP = 204 mGy-cm. This CT exam was performed using one or more of the following dose reduction techniques: Automated exposure control, adjustment of the mA and/or kV according to patient size, and/or use of iterative reconstruction technique. FINDINGS: LOWER THORAX: Chronic emphysematous changes and mild scarring are seen at the lung bases. No pleural effusion is seen. No pericardial effusion is noted. Distal esophagus is unremarkable. LIVER: Low limited but otherwise unremarkable and no focal mass or intrahepatic ductal dilatation is clearly seen. GALLBLADDER AND BILE DUCTS: Limited evaluation of the gallbladder shows no appreciable gallbladder wall thickening. PANCREAS: Extremely limited evaluation of the pancreas. No definite pancreatic enlargement is seen on this noncontrast exam. SPLEEN: Unremarkable. No splenomegaly. ADRENALS: Unremarkable. KIDNEYS AND URETERS: Renal calculi are appreciated. These are nonobstructing. No definite perinephric changes are seen. No hydronephrosis is noted. BLADDER: Grossly unremarkable. REPRODUCTIVE: Unremarkable. APPENDIX: No inflammatory process is seen in the right lower quadrant although the appendix is not adequately identified on this examination. BOWEL: Moderate residual fecal material and oral contrast are seen throughout the bowel. In addition there are some mildly dilated nonspecific small-bowel loops which may suggest ileus. Oral contrast is seen in the colon, and therefore small bowel obstruction is considered less likely. PERITONEUM: Mild ascites is noted. No free intraperitoneal air. LYMPH NODES: Unremarkable. No enlarged lymph nodes. VASCULATURE: Unremarkable. No aortic aneurysm. BONES: There is inferior compression deformity of L2, probably chronic. No lytic process is seen. Mild superior endplate compression deformity at T11 is also noted. OTHER FINDINGS: None. IMPRESSION: Extremely limited study due to the lack of intravenous contrast and lack of internal fat with the patient being cachectic. As sarcoid and mild ascites are suspected. No appreciable CT scan evidence of appendicitis, colitis, or pancreatitis. Evaluation of the internal organs is limited by the lack of contrast. Nonobstructing bilateral renal calculi. No free air is seen. Possible ileus.
--- NOTE | 2018-07-24 09:54 | RAD ---
Date of service: 07/24/2018 HISTORY: pSBO COMPARISON: No prior. FINDINGS: BOWEL: Diffuse small and large bowel air is noted without significant bowel distention to suggest obstruction. Bowel gas is seen distally in the rectosigmoid region. Oral contrast is seen in the transverse colon. No appreciable free air can't be excluded on this radiograph. BONES: No fracture. OTHER FINDINGS: None. IMPRESSION: Diffuse bowel gas air suggestive of mild ileus. No gross bowel obstruction noted with air seen in the rectosigmoid region.
--- NOTE | 2018-07-24 10:02 | ED PDOC ---
- Laboratory Results Result Diagrams: 07/23/18 15:00 07/23/18 15:00 - ECG O2 Sat by Pulse Oximetry: 100 (RA) Medical Decision Making Medical Decision Making: Discusssed with surgery. Repeat xray does not indicate obstruction as contrast from CT has passed to transverse colon. Pt feels better and has no pain or vomiting. Will dc home as having had ileus. Disposition - Clinical Impression Clinical Impression: Abdominal pain, Hypocalcemia, Ileus - POA Present On Arrival: None - Disposition Referrals: [facility] [Outside] Jordy Ferrari MD [Staff Provider] - Disposition: Routine/Home Disposition Time: 10:02 Condition: FAIR Prescriptions: Dicyclomine [Dicyclomine HCl] 10 mg PO Q8 #10 cap Instructions: Colic Print Language: PALAUAN
[2018-07-24 11:46] VITALS: RESP 18
[2018-07-24 13:25] VITALS: BP 109/69; PULSE 71; TEMP 98; O2SAT 98
--- NOTE | 2018-07-24 17:40 | CARD ---
APPROVED REPORT Date of service: 07/23/2018 <Conclusion> Normal sinus rhythm Normal ECG
== END 2018-07-24 13:19 | disposition home or self-care (01) ==
LOC: H.ER 13:21
DX: B95.4 Other streptococcus as the cause of diseases classified elsewhere (principal); Z59.0 Homelessness; B87.1 Wound myiasis; N20.0 Calculus of kidney; K56.600 Partial intestinal obstruction, unspecified as to cause; F17.200 Nicotine dependence, unspecified, uncomplicated; E83.51 Hypocalcemia
CPT/HCPCS: 71045; 73590; 74018; 74176; 80053; 80320; 80324; 80345; 80346; 80349; 80353; 80358; 80361; 81003; 82803; 83690; 83992; 84484; 85025; 87070; 87181; 93005; 96360; 96361; 99285; J7030; J7120; Q9966; Q9967